=== PATIENT | male | born 1965 | race Two or more races ===

== ENCOUNTER 2019-01-20 07:28 | Emergency (ER) | payer OTHER ==
[~2019-01-20] VITALS: Ht 167.6 cm; Wt 66.7 kg
[~2019-01-20 07:28] MED LIST: RESTORIL7.5 MG PO; WELLBUTRIN XL150 M1 PO
== END 2019-01-20 10:55 | disposition home or self-care (01) ==
LOC: ER 07:28
DX: R51 Headache (principal); I10 Essential (primary) hypertension